=== PATIENT | male | born 1975 | race Caucasian/White ===

== ENCOUNTER 2017-10-29 11:02 | Inpatient (IN) ==
--- OUTSIDE RECORDS SUMMARY | 2017-10-29 14:47 | External Medical Summary | Continuity of Care Document ---
:1975 Author Organization [facility] Care Team Providers Name Role Phone [employer] Unavailable Unavailable Encounters Location Location Encounter Encounter Reason Attending ADM DC Status Source Details Type Number For Provider Date Date Visit INPATIENT [id number] YARED 10/18 10/29 Active [facility] Julissa WALTER 11/30 Active [facility]
[2017-10-29 15:17] VITALS: BMI 26.1
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
--- NOTE | 2017-10-29 16:09 | IRU 24Hr Post Admit Eval ---
24 Hr Post Admission Physical - Relevant Changes Relevant Changes: No Reviewed: I have reviewed the patient's information and concur with the finding and results of the pre-admission screen. Certification: I certify the patient for rehabilitation. - Patient Condition (1) SAH (subarachnoid hemorrhage) Status: Acute Code(s): I60.9 - Nontraumatic subarachnoid hemorrhage, unspecified Classification: IRF Tx That Should Address Diagnosis, Diagnosis Requiring Medical Follow Up (2) IVDU (intravenous drug user) Status: Chronic Code(s): F19.90 - Other psychoactive substance use, unspecified, uncomplicated Classification: Present on IRF Admission, IRF Tx That Should Address Diagnosis, Diagnosis Requiring Medical Follow Up (3) Hepatitis C Status: Chronic Qualifiers: Viral hepatitis chronicity: unspecified Code(s): B19.20 - Unspecified viral hepatitis C without hepatic coma Classification: Present on IRF Admission, Diagnosis Requiring Medical Follow Up (4) Ischemic stroke Status: Acute Code(s): I63.9 - Cerebral infarction, unspecified Classification: Present on IRF Admission, IRF Tx That Should Address Diagnosis, Diagnosis Requiring Medical Follow Up - Prior Functional Status Lives With: Other (roommate) Residence Type: Apartment/Private Home Assitive Devices: None Prior Functional Status: Indep. at home or school, Indep. w/ all home ADL - Current Functional Status Current Level of Function: Current level of functioning is as follows: He is independent for eating but requires supervision for grooming and bathing and lower body dressing. He requires total assistance for toileting, minimum assistance for bed/chair/ wheelchair transfers and walking. He is able to walk with a rolling walker 600 feet. Patient makes adjustments to walking speed with significant gait deviations and loss of balance. He has decreased foot clearance and right lower extremity and decreased foot clearance and left lower extremity. Has multiple loss of balance is noted. PT recommends inpatient setting with attention to balance and gait impairments that places patient at high risk for falls. Failed Alternative Therapy: Arrived from Acute Care Patient Requirements: The patient requires oversight by rehabilitation physician to manage their rehabilitation treatment plan and multidisciplinary approach to care that can only be provided in an IRF and requires a multidisciplinary approach to care, provided by professional PTs, OTs, STs, dieticians, RTs, rehabilitation nurses and is not available in lesser levels of care. Limitations Req: Mobility Impairment, ADL Impairment Therapy: The patient is to receive therapy at least 5 days a week. Plan of Care Comment: Physical therapy: 75 minutes 3 days weekly, 90 minutes 2 days weekly. Occupational therapy: 75 minutes 3 days weekly, 90 minutes 2 days weekly. Speech therapy: 30 minutes 3 days weekly - Complications/Comorbidities Impact on Functional Outcomes: Patient's headache and neurologic changes may negatively impact his functional outcome. Barriers to Discharge: Weakness, Balance, Endurance - Plan to Avoid Complications Plan to Avoid Complications: The patient cannot receive this care in a lesser intensive setting such as Assisted or Outpatient Therapy due to the patient requiring the following : Patient requires speech therapy, occupational therapy and physical therapy in a multidisciplinary coordinated fashion. He has history of recent subarachnoid hemorrhage and is at risk of rebleeding as well as having additional neurologic compromise. He requires administration of medications every 4 hours (nimodipine ) for 21 days. He has a fall risk and requires 24 rehabilitation nursing to monitor his neurologic status as well as requiring medical supervision.
[2017-10-29] MEDS ORDERED: METHOCARBAMOL 500 MG TABLET PO PRN (16:11)
[2017-10-29] MEDS ORDERED: SODIUM CHLORIDE 4 MEQ/ML IV SCH (16:15)
[2017-10-29] MEDS: Oxycodone *IR* 5 MG TABLET PO PRN ×2 (16:22→21:58)
[2017-10-29] MEDS: SODIUM CHLORIDE 1 GM TABLET PO SCH ×2 (17:49→21:58)
[2017-10-29] MEDS: HEPARIN SUB-Q 5,000units/0.5ml INJECTION SQ SCH (17:50)
[2017-10-29] MEDS: ACETAMINOPHEN 325 MG TABLET PO PRN (17:51)
[2017-10-29] MEDS: SENNA + DOCUSATE TABLET PO SCH (21:58)
[2017-10-29] MEDS: MELATONIN 1 MG TABLET PO SCH (21:58)
[2017-10-29] MEDS: FLUDROCORTISONE 0.1 MG TABLET PO SCH (21:58)
[2017-10-30] MEDS: HEPARIN SUB-Q 5,000units/0.5ml INJECTION SQ SCH ×3 (02:27→18:10)
[2017-10-30] MEDS: Oxycodone *IR* 5 MG TABLET PO PRN ×5 (02:50→20:55)
[2017-10-30] MEDS: PANTOPRAZOLE 40 MG TABLET PO SCH (05:57)
[2017-10-30] MEDS: FLUDROCORTISONE 0.1 MG TABLET PO SCH ×2 (10:09→20:49)
[2017-10-30] MEDS: NICOTINE 14 MG PATCH TD SCH (10:10)
[2017-10-30] MEDS: SODIUM CHLORIDE 1 GM TABLET PO SCH ×4 (10:10→20:50)
[2017-10-30] MEDS: SENNA + DOCUSATE TABLET PO SCH ×2 (10:13→20:55)
[2017-10-30] MEDS: NICOTINE PATCH REMOVAL TD SCH (10:24)
--- NOTE | 2017-10-30 12:24 | IRU Plan of Care ---
[facility] Overall Plan of Care - Date Date: 10/30/17 - Patient Impairments (1) SAH (subarachnoid hemorrhage) Code(s): I60.9 - Nontraumatic subarachnoid hemorrhage, unspecified Status: Acute Classification: IRF Tx That Should Address Diagnosis, Diagnosis Requiring Medical Follow Up (2) IVDU (intravenous drug user) Code(s): F19.90 - Other psychoactive substance use, unspecified, uncomplicated Status: Chronic Classification: Present on IRF Admission, IRF Tx That Should Address Diagnosis, Diagnosis Requiring Medical Follow Up (3) Hepatitis C Qualifiers: Viral hepatitis chronicity: unspecified Code(s): B19.20 - Unspecified viral hepatitis C without hepatic coma Status: Chronic Classification: Present on IRF Admission, Diagnosis Requiring Medical Follow Up (4) Ischemic stroke Code(s): I63.9 - Cerebral infarction, unspecified Status: Acute Classification: Present on IRF Admission, IRF Tx That Should Address Diagnosis, Diagnosis Requiring Medical Follow Up - Relevant Changes Relevant Changes: No Reviewed: I have reviewed the patient's information and concur with the finding and results of the pre-admission screen. Certification: I certify the patient for rehabilitation. - Medical Prognosis Medical Prognosis: Good Vital Signs: Last Vital Signs Temp 98.5 F 10/30/17 10:08 Pulse 90 10/30/17 10:08 Resp 18 10/30/17 10:08 BP 131/92 H 10/30/17 10:08 Pulse Ox 97 10/30/17 10:08 - Anticipated Interventions Anticipated Interventions: The patient requires inpatient IRF care for PT, OT, and/or ST for residuals remaining from subarachnoid hemorrhage and ischemic strokes resulting in muscular weakness and strength deficits. Strength Deficits: Left Lower Extremity - Current Functional Status Failed Alternative Therapy: Arrived from Acute Care Patient Requires: The patient requires oversight by rehabilitation physician to manage their rehabilitation treatment plan and multidisciplinary approach to care that can only be provided in an IRF and requires a multidisciplinary approach to care, provided by professional PTs, OTs, STs, rehabilitation nurses, and may require STs, dieticians, and RTS. This is not available in lesser levels of care. Therapy: The patient is to receive therapy at least [address] Treatment Plan: Cognitive Linguistic Tx ST Treatment Plan Duration: One Week ST Treatment Plan Frequency: Three Times Per Week Plan of Care Comment: PT: 75 minutes three days weekly, 90 minutes two days weekly. OT: 75 minutes three days weekly, 90 minutes two days weekly. ST: 30 minutes three days weekly - Anticipated LOS/Outcomes Anticipated Functional Outcome: It is anticipated the patient will be able to return to his home with independent or modified independent level of functioning and able to perform his ADLs without assistance. Anticipated Length of Stay (days): 7 Anticipated DC Destination: Home, Self [facility]ci Safety Plan: The patient will be provided with the development of a Home Safety Plan for return to a home or home-like environment and and to ensure safety post discharge. - Plan to Avoid Complications Barriers to Attaining Goals: Weakness, Balance, Pain Control Plan to Avoid Complications: The patient cannot receive this care in a lesser intensive setting such as Retirement or Outpatient Therapy due to the patient requiring the following : in view of the patient's recent subarachnoid hemorrhage, he requires 24 hour rehabilitation nursing monitoring of his neurologic status, blood pressure and pain management. He requires a multidisciplinary coordinated approach with PT, OT and speech therapy in view of his potential cognitive deficits. He requires medical supervision for these activities which cannot be provided at a less intensive setting.
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
[2017-10-30] MEDS: ACETAMINOPHEN 325 MG TABLET PO PRN (18:12)
[2017-10-30] MEDS: MELATONIN 1 MG TABLET PO SCH (20:50)
[2017-10-31] MEDS: HEPARIN SUB-Q 5,000units/0.5ml INJECTION SQ SCH ×3 (00:23→17:13)
[2017-10-31] MEDS: Oxycodone *IR* 5 MG TABLET PO PRN ×5 (01:17→21:06)
[2017-10-31] MEDS: PANTOPRAZOLE 40 MG TABLET PO SCH (06:10)
[2017-10-31] MEDS: SODIUM CHLORIDE 1 GM TABLET PO SCH ×4 (08:30→20:07)
[2017-10-31] MEDS: FLUDROCORTISONE 0.1 MG TABLET PO SCH ×2 (08:30→20:05)
[2017-10-31] MEDS: NICOTINE 14 MG PATCH TD SCH (08:33)
[2017-10-31] MEDS: SENNA + DOCUSATE TABLET PO SCH ×2 (08:33→23:00)
[2017-10-31] MEDS: NICOTINE PATCH REMOVAL TD SCH (08:33)
[2017-10-31] MEDS: ACETAMINOPHEN 325 MG TABLET PO PRN ×2 (12:12→20:06)
[2017-10-31 19:44] VITALS: RESP 18
[2017-10-31] MEDS: MELATONIN 1 MG TABLET PO SCH (20:05)
[2017-11-01] MEDS: HEPARIN SUB-Q 5,000units/0.5ml INJECTION SQ SCH ×2 (00:46→08:58)
[2017-11-01] MEDS: ACETAMINOPHEN 325 MG TABLET PO PRN ×2 (00:46→05:44)
[2017-11-01] MEDS: Oxycodone *IR* 5 MG TABLET PO PRN ×4 (00:47→15:01)
[2017-11-01] MEDS: PANTOPRAZOLE 40 MG TABLET PO SCH (05:44)
[2017-11-01] MEDS: SODIUM CHLORIDE 1 GM TABLET PO SCH ×2 (08:56→12:22)
[2017-11-01] MEDS: FLUDROCORTISONE 0.1 MG TABLET PO SCH ×2 (08:58→09:50)
[2017-11-01] MEDS: NICOTINE 14 MG PATCH TD SCH (08:59)
[2017-11-01] MEDS: NICOTINE PATCH REMOVAL TD SCH (09:00)
[2017-11-01] MEDS: SENNA + DOCUSATE TABLET PO SCH (09:00)
[2017-11-01 09:23] VITALS: BP 124/63; PULSE 79; TEMP 98.3; O2SAT 99
--- NOTE | 2017-11-01 11:39 | IRU Progress Note ---
- Subjective/Serverity of Illness Date: 11/01/17 Danie overall is doing well with therapy and would like to go home today. He reports his headaches continue to be a problem but are improved. Continues to have reduced vision in the right eye as prior to admission. He states he does not have a primary care physician at the present time and we are working with him to find one. It will be mandatory that he follow up with someone particularly as regards the monitoring of his electrolytes. We also discussed the use of oxycodone for his headaches. We advised him that we would need to reduce this dramatically and rely on Tylenol and ibuprofen. He denies any nausea or vomiting. Denies any new neurologic complains. With regard to therapy, has reduced dorsiflexion of right lower extremity and occasionally left lower extremity. Exam Vital Signs: Temperature 98.3 F 11/01/17 08:00 Pulse Rate 79 11/01/17 08:00 Respiratory Rate 18 11/01/17 08:00 Blood Pressure 124/63 11/01/17 08:00 Pulse Oximetry 99 11/01/17 08:00 Height/Weight/BMI: Height 1.75 m Weight 80.2 kg Body Mass Index 26.1 - Constitutional Present: no acute distress, well nourished, well developed, cooperative - Routine HEENT Exam Head: Present: normocephalic Eye: Present: EOMI, PERRL ENT: Present: mucous membranes moist, oropharynx clear - Routine Neck Exam Present: supple - Routine Respiratory Exam Present: CTA bilaterally. Absent: wheezes - Routine Cardiovascular Exam Present: RRR, S1, S2, murmur (systolic murmur again identified. Apparently no evidence of vegetation based on report from [facility]) - Routine Abdominal Exam Present: soft, normoactive bowel sounds, non distended. Absent: tenderness - Routine Extremities Exam Present: no edema, normal capillary refill - Routine Back/Spine/Pelvis Exam Back/Spine: Present: full ROM - Routine Skin Exam Present: dry, warm - Routine Neurological Exam Present: alert, oriented X3, CN II-XII intact, motor deficit (report of reduced dorsiflexion right lower extremity. At the present time otherwise his strength appears to be normal bilaterally in the upper and lower extremities. No facial droop and his speech is fluent.) - Routine Psychiatric Exam Present: normal affect, normal thought process, cooperative Results IRU - Labs Labs: Reviewed labs and other providers notes. IRU A/P (1) SAH (subarachnoid hemorrhage) Current visit: Yes Status: Acute Patient appears to be neurologically stable. He continues to have headaches. (2) IVDU (intravenous drug user) Current visit: Yes Status: Chronic (3) Hepatitis C Qualifiers: Viral hepatitis chronicity: unspecified Current visit: Yes Status: Chronic (4) Ischemic stroke Current visit: Yes Status: Acute Neurologically he appears to be stable. DVT Prophylaxis: SCD's Resuscitation Status: Full Code - Course Hospital Course: Francisco Javier Hernandez MD: 11/01/17 11:40 Danie is doing well with therapy. He needs to find a primary care provider. Neurologically he is stable. - Interventions to Obtain Goals PT Treatment Plan: Balance/Proprioception, Functional Activities, Gait Training , Patient/Family Education, Therapeutic Exercise OT Treatment Plan: ADL (Basic Care), Balance Training, IADL, Pt./Family Education, Ther. Exercise for ADL, UE Functional Training
--- NOTE | 2017-11-01 13:32 | IRU Team Meeting ---
IRU Team Meeting - Nursing Bladder Management Level of Assist: Independent Bladder Frequency of Accidents: No accidents Bowel Assistive Devices Utilized:: Medication Bowel Management Level of Assist: Modified Independent Bowel Frequency of Accidents: No accidents Vital Signs: Vital Signs - 24 hr 10/31/17 16:00 10/31/17 19:43 11/01/17 08:00 Temperature 95.7 F L 98.2 F 98.3 F Pulse Rate 78 90 79 Respiratory Rate 16 18 18 Blood Pressure 133/93 H 135/81 124/63 Pulse Oximetry 99 98 99 Current Medications: Acetaminophen (Tylenol) 650 mg PO Q4H PRN PRN Reason: Pain Last Admin: 11/01/17 05:44 Dose: 650 mg Fludrocortisone Acetate (Florinef) 0.1 mg PO TID [facility] Last Admin: 11/01/17 09:50 Dose: 0.1 mg Heparin Sodium (Porcine) (Heparin Sq) 5,000 units SQ Q8HR [facility] Last Admin: 11/01/17 08:58 Dose: 5,000 units Melatonin (Melatonin) 1 mg PO HS [facility] Last Admin: 10/31/17 20:05 Dose: Not Given Methocarbamol (Robaxin) 500 mg PO BID PRN PRN Reason: Muscle cramps Nicotine (Nicoderm) 14 mg TD DAILY [facility] Last Admin: 11/01/17 08:59 Dose: 14 mg Nicotine (Nicotine Patch Removal) 1 removal TD DAILY [facility] Last Admin: 11/01/17 09:00 Dose: 1 removal Nimodipine (Nymalize) 60 mg PO Q4H [facility] Stop: 11/07/17 21:00 Last Admin: 11/01/17 12:22 Dose: 60 mg Oxycodone HCl (Roxicodone *Ir*) 5 mg PO Q4H PRN PRN Reason: Pain Last Admin: 11/01/17 10:07 Dose: 5 mg Pantoprazole Sodium (Protonix Tab) 40 mg PO ACB [facility] Last Admin: 11/01/17 05:44 Dose: 40 mg Potassium Chloride (K-Dur 20 Meq Tablet) 20 meq PO TIDWM [facility] Last Admin: 11/01/17 12:22 Dose: 20 meq Potassium Chloride (K-Dur 20 Meq Tablet) 20 meq PO BIDWM [facility] Stop: 11/01/17 23:59 Last Admin: 11/01/17 08:57 Dose: 20 meq Senna/Docusate Sodium (Senna Plus Tablet) 1 tab PO BID [facility] Last Admin: 11/01/17 09:00 Dose: Not Given Sodium Chloride (Salt Tablet) 0.5 gm PO QID [facility] Last Admin: 11/01/17 12:22 Dose: 0.5 gm Current Medical Issues: subarachnoid hemorrhage, ischemic CVA Comments: I certify that I personally led the interdisciplinary team meeting and agree with comments, barriers and goals indicated. Team meeting was held in the patient's room with the patient and the following family members present: patient alone Danie continues to complain of a headache for which he has taken oxycodone. It is better today. Continues to have right eye decreased vision as at the time of admission. Neurologically he has been stable. His appetite is good. He has had no nausea no vomiting. - Speech Therapy Speech therapy assessed cognitive status and they feel he is intact. - Physical Therapy Bed, Chair, Wheelchair Transfer Assist: Modified Independent Ambulation Ability: Independent Ambulation Distance: 811 Stair Climbing Ability: Independent Number of Steps Climbed: 12 Car Transfer Ability: Independent Comments: He is independent with ambulation. He can climb stairs 12 steps in an independent fashion. He does demonstrate adequate safety and mobility for return to his home environment. There is some right foot slapping that increases with fatigue. - Occupational Therapy Eating Ability: Independent Grooming Ability: Independent Bathing Ability: Independent Upper Body Dressing Ability: Independent Lower Body Dressing Ability: Independent Tub Transfer Assist: Independent Toileting Assist: Independent Toilet Transfer Assist: Independent Comments: He is independent with all ADLs. - Goals Physical Therapy Goals: 11/01/17 Goals: 1.) Recommend outpatient physical therapy for increased coordination. 2.) Decreased foot drop with fatigue when walking over 500 feet. Occupational Therapy Goals: 11/01/17: 1) Discharge planning--no out-pt OT - Barriers to Discharge Barriers to Attaining Goals: Balance (balance and proprioceptive training is provided.) - Care Plan Anticipated Length of Stay (days): 0 Anticipated DC Destination: Home, Self Care I have led this team conference and agree with the plan. Interventions/Goals: Patient is neurologically stable. He will be dismissed today.
--- NOTE | 2017-11-01 14:35 | Discharge Summary ---
Discharge Information Date of admission: 10/29/17 14:38 Anticipated date of discharge: 11/01/17 Attending Physician: Francisco Javier Hernandez MD Consults: 10/29/17 16:10 Physician Consult [CONS] Routine Consulting Provider: Cortney Sousa Reason For Exam: medical management Ordering Provider has Notified Logging Equipment Operator: No - Discharge Diagnosis (1) SAH (subarachnoid hemorrhage) Status: Acute (2) IVDU (intravenous drug user) Status: Chronic (3) Hepatitis C Status: Chronic (4) Ischemic stroke Status: Acute 1. 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 Bilateral anterior cerebral artery infarcts 3. Intravenous drug usage 4. Systolic heart murmur 5. History of bacteremia with coag negative staph and strep viridans, with negative follow-up blood cultures in [place] 6. Cerebral salt wasting - Laboratory Labs: 10/31/17 04:53 11/01/17 04:23 History of Present Illness HPI: Mr. Rinaldi is a 42-year-old male who presented to the emergency department at [facility] on October 17, 2017 with headache and decreased vision in the right eye. Consideration was given to sepsis. CSF was obtained and was bloody. CT scan of the head demonstrated a probable subarachnoid hemorrhage. He was transferred emergently to [facility]. Subsequently he was sent to [facility] where a coil embolization was done on 10/26/2017. He had been started on Nimodipine 60 mg every 4 hours with the last dose to conclude on 11/07/2017 for a total of 21 days. As a result of this subarachnoid hemorrhage as well as bilateral infarcts, patient developed multiple functional deficits and he was transferred to [facility] inpatient rehabilitation for a [facility] intensive inpatient rehabilitation therapeutic program. It is noted also that he had positive blood cultures at [facility] for coag negative staph and Streptococcus viridans. Follow-up blood cultures at were negative. The patient does have a systolic heart murmur. Echocardiogram is referenced in the records from with no mention made of PFO nor vegetations. Ejection fraction is normal. We are obtaining the actual echocardiogram report and will follow-up with patient if necessary in this regard. At he was seen by Dr. Rachana Meyer and Sheila Cast MD because of his reduced vision in the right eye. 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 Reported the visualized typically is reversible and recommended elevation of head of bed. In addition he recommended follow-up with retinal specialist in about a month. Hospital Course This is a general summary of the patient's hospital course. For more details refer to the complete medical record. Following his stabilization at with regard to his subarachnoid hemorrhage and bilateral infarcts, the patient was transferred to [facility]. He was followed by the hospitalist service. He was continued on the Florinef and the salt tablets. His dismissal sodium is 143 with a goal of 135-145. Dismissal potassium is 3.2 and he is going home on supplemental potassium. He will also go home with the remainder of the new moderate pain to conclude on to take 60 mg (30 mg capsules, 2 at a time every 4 hours around the clock). He was seen by occupational therapy. At the conclusion of therapy he was independent for all activities of daily living. He was seen by physical therapy. At the conclusion of therapy he was modified independent for bed/chair/wheelchair transfers. He was independent for climbing 12 steps and independent for car transfers. He could ambulate over 800 feet independently. It is recommended that the patient not drive at the present time. He will need close follow-up of his electrolytes this week to ensure that his sodium remains between 135 and 145. If it is low he may need to be started back on Florinef 0.1 mg once or twice daily plus salt tablets 2-3 times daily. He will follow-up with his new provider, Abbey Turner APRN. He will also need to see a retinologist in about a month regarding his right eye. Hospital course: Impression: <PCP: None> SAH * Yung and Ivory score 2 *Cerebral Salt Wasting *Vasospasm monitoring/prophylaxis *Sz. Prophylaxis with Keppra, completed. 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 PT/OT/ST per attending. Will continue supportive care. Continue Salt tabs for tx of CHEESE PANCAKE ROLLER- target sodium of 135-145, Serum osmo around 180 Need to continue Nimotop for vasospasm prophylaxis- usually continue 21 days post SAH Stop date of 11/07/17 noted on transferring facility MAR- will apply to this MAR as well. Jordy ongoing- monitor for orthostasis and adrenal insufficiency. Taper as he improves? Will need monitoring for sx of vasospasm once it is completed. (Spastic pain/ vision changes) He was cleared re: bacteremia at [facility]. If fever recurs, will need repeat BC and consideration for VAIBHAV. Possible embolic strokes, unable to anticoagulate due to bleeding. Continue therapy. Monitor for issues with drug w/d. PRN nicoderm patch. Repeat labs in AM. Will need frequent BMP monitoring while on salt tabs. Time spent with patient: greater than 35 minutes Resuscitation Status: Full Code Discharge Plan - Med Rec/Dispo Referrals/Follow Up: Abbey Scott APRN [Advanced Practice Nurse] - (Appointment on 11/08/17 at 2: 30pm. Please arrive 15 minutes early for the appointment. ) Alexis Instructions: Cigarette Smoking and Your Health (GEN), Ischemic Stroke ( GEN) Prescriptions: New Potassium Chloride [K-DUR 20 mEq Tablet] 20 meq PO BIDWM #14 tab Simvastatin [Zocor] 10 mg PO HS #30 tab Continue Pantoprazole Sodium [Protonix] 40 mg PO DAILY Nicotine Patch [Nicoderm] 14 mg TD DAILY Acetaminophen 650 mg PO Q4H PRN PRN Reason: Pain niMODipine [Nimodipine] 60 mg PO Q4H #48 cap Changed Oxycodone *IR* [Roxicodone *Ir*] 5 mg PO QID PRN #16 tab PRN Reason: Pain Discontinued Senna + Docusate [Senna Plus Tablet] 1 tab PO BID Methocarbamol [Robaxin] 500 mg PO BID PRN PRN Reason: Muscle Cramps Melatonin Tab [Melatonin] 1 mg PO HS Heparin Sodium,Porcine/Pf [Heparin Sod 5,000 Unit/0.5 ml] 5,000 unit IJ Q8H Fludrocortisone [Florinef] 0.2 mg PO BID Sodium Chloride Conc 34 meq INJ Q6H - Disposition 01 Discharged Home, Self-Care - Dismissal Complete Discharge Instructions are:: Complete
--- NOTE | 2017-11-01 14:41 | Letter to Referring Physician ---
Dear Abbey, This is a brief note to bring you up-to-date on the status of Danie Rinaldi and his stay on the acute inpatient rehabilitation unit at [facility]. I believe he is a new patient to you. He presented to [facility] emergency department on October 17 with headache and right eye decreased vision. After evaluation he was found to have an acute subarachnoid hemorrhage and was initially sent to [facility]. They transferred him to [facility]. A coil embolization was performed on 10/26/2017. He also had another aneurysm which was not amenable to access. The patient was stabilized while on the acute level and admitted to inpatient rehabilitation unit at [facility] on October 29, 2017. While on inpatient rehabilitation, this patient was seen by occupational therapy and physical therapy and improved overall in their functional ability. He remained neurologically stable while on acute inpatient rehabilitation. Please see a copy of the history and physical examination as well as discharge summary enclosed with this letter for further details. He has been on Florinef 0.1 mg 3 times daily plus salt tablets noted to maintain his sodium between 135-145 per recommendation of . We are discontinuing this at the time of dismissal. He will need a follow-up BMP this week, perhaps on or so to recheck his sodium. If his sodium is less than 135 he will need to restart the Florinef 0.1 mg once or twice daily plus salt tablets 3 or 4 times daily. He will need to have this monitor periodically over the next several weeks. In addition, it is recommended that the patient not drive until his vision improves. Finally, he will need to get an appointment to see a retinologist in [place] in about 4 weeks regarding the right eye decreased vision. He was seen by a retinal specialist at who feel as though likely the vitreous hemorrhage will clear. Nevertheless it is important that he follow up with someone in about a month. Thank you for allowing us to be involved in this nice patient's care. Please contact me directly should you have any questions regarding their stay on the inpatient rehabilitation unit. Sincerely, Francisco Javier Hernandez M.D.
--- NOTE | 2017-11-01 21:05 | Progress Note ---
Progress Note: Mr. Rinaldi was seen briefly this morning prior to discharge to reviewed discharge recommendations including elevation of head of bed to permit clearing of vision, need for follow-up with ophthalmology/retinal specialist 4 weeks following discharge, and absolute need to avoid methamphetamine to minimize blood pressure spikes due to presence of small untreated aneurysm. He reports that he feels well, is ambulating stably and feels he is safe for discharge at this time. Speech was fluent and respirations nonlabored. He indicated plans to follow-up with a provider at [facility]. Need to complete course of nimodipine was discussed and case management was assisting with sources of medication.
== END 2017-11-01 15:10 | disposition home or self-care (01) | DRG 57 ==
PROVIDERS: ADMIT Internal Medicine; ATTEND Internal Medicine